=== PATIENT | male | born 1940 | race Caucasian/White ===

== ENCOUNTER → 2017-02-17 | Outpatient (CLI) | payer OTHER ==
[~2017-02-17] VITALS: Ht 182.9 cm; Wt 78.9 kg
[~2017-02-17] MED LIST: INDERAL 20 MG T20 M1 PO; INDERAL LA80 MG PO; LACTULOSE10 GM/152 PO; LASIX 40 MG TAB40 M1 PO; MULTIVITAMINS PO; PRILOSEC 20 MG20 MG PO; SPIRONOLACTONE25 M1 PO
--- NOTE | ~2017-02-17 | P ---
[facility] [place] [address] PROCEDURE REPORT Name: LIZZY ARORA Room #: REG [facility]#: [id number] Admission: 02/17/17 Attend Phys: Kris Aaron MD Discharge: Date of : 38 Report #: [id number] THIS REPORT FOR: //name// CC: Kris Powell MD OUTPATIENT UPPER ENDOSCOPY BRIEF HISTORY: The patient is a 77-year-old male well known to me with a history of portal hypertension related to an injury in the 1970s. 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 PREOPERATIVE DIAGNOSIS: Portal hypertension. POSTOPERATIVE DIAGNOSES: 1. Esophageal varices. 2. Portal hypertensive gastropathy. MEDICATIONS: Deep sedation with propofol per anesthesia. SPECIMEN: None. ESTIMATED BLOOD LOSS: None. PROCEDURE: EGD with banding of esophageal varices. FINDINGS: Prior to propofol sedation, the procedure of upper endoscopy and banding was discussed with the patient as well as potential risks and its complications. He indicates he understands and desires to proceed. DESCRIPTION OF PROCEDURE: With the patient in left lateral decubitus position, the Fuji video endoscope was inserted in the cervical esophagus under direct vision without difficulty. Examination of this organ through its entire length revealed normal esophageal mucosa in the proximal esophagus distally as we advanced the scope, he was noted to have several columns of varices. For the most part, the columns were 1+. However, there was 1 column that was about 2+ in particular it was most prominent in the distal esophagus just distal to the scared area from previous banding. There was no evidence of bleeding. Stigmata bleeding was not identified. The scope was advanced in the stomach, was examined on end view as well as retroflexed views. He has a pattern of diffuse erythema and some thickening in the mucosa consistent with portal hypertensive gastropathy. Gastric varices were not seen. There was no evidence of bleeding. Stigmata bleeding was not seen within the stomach. The pylorus, duodenal bulb and duodenal sweep were inspected and noted to be unremarkable. At that point, the scope was slowly withdrawn and careful circumferential views were obtained. [facility] [address] [place] [address] PROCEDURE REPORT Name: MAITELIZZY Kush Room #: REG [facility].#: [id number] Admission: 02/17/17 Attend Phys: Kris Aaron MD Discharge: Date of : 38 Report #: [id number] Subsequently, after the scope was withdrawn, it was fitted with the banding device. The scope was reintroduced and the 2+ varix was suctioned up into the banding chamber and a band was placed over it. We have achieved good results. There was no evidence of bleeding. At that point, the scope was slowly withdrawn and careful circumferential views confirmed the above findings. The patient tolerated the procedure well. CONDITION OF THE PATIENT UPON DISCHARGE: Following procedure, the patient drowsy, aroused, conversant and will be discharged home when fully ambulatory. INSTRUCTIONS TO THE PATIENT AND FAMILY AT THE TIME OF DISCHARGE: The patient banded as described. He is noted to have portal hypertensive gastropathy, but no evidence of gastric varices. We will have him return in 1 year for a surveillance exam. We will also obtain labs for followup. We will also have him obtain an ultrasound to screen for neoplastic lesions. <ELECTRONICALLY SIGNED> By: Kris Aaron MD 02/18/17 2049 [id number] Kris Aaron MD /nt
== END | disposition home or self-care (01) ==
LOC: GI 08:26
DX: K76.6 Portal hypertension (principal); I85.10 Secondary esophageal varices without bleeding; Z87.891 Personal history of nicotine dependence; Z98.890 Other specified postprocedural states
CPT/HCPCS: 62110; 62900

== ENCOUNTER → 2017-02-25 | Outpatient (CLI) | payer OTHER | LOC: ULTRA 08:13 → EDSTATUS 12:02 → ULTRA 14:20 | DX: K76.89 Other specified diseases of liver (principal); K76.6 Portal hypertension ==

== ENCOUNTER 2017-11-06 14:20 | Emergency (ER) | payer OTHER ==
[~2017-11-06] VITALS: Ht 182.9 cm; Wt 75.8 kg
[2017-11-06] MEDS ORDERED: ERYTHROMYCIN E3.5 G3 OPHTHALMIC (15:05)
== END 2017-11-06 16:54 | disposition home or self-care (01) ==
LOC: ER 14:20
DX: T15.12XA Foreign body in conjunctival sac, left eye, initial encounter (principal); S00.212A Abrasion of left eyelid and periocular area, initial encounter; Z86.718 Personal history of other venous thrombosis and embolism; Z90.49 Acquired absence of other specified parts of digestive tract; Z95.0 Presence of cardiac pacemaker; X58.XXXA Exposure to other specified factors, initial encounter; Y93.89 Activity, other specified; Y92.89 Other specified places as the place of occurrence of the external cause; Y99.8 Other external cause status

== ENCOUNTER → 2018-08-31 | Outpatient (CLI) | payer OTHER ==
[~2018-08-31] VITALS: Ht 182.9 cm; Wt 72.6 kg
[~2018-08-31] MED LIST changes: +CONSTULOSE10 GM/152 PO; +ERYTHROMYCIN E3.5 G3 OPHTHALMIC
--- NOTE | ~2018-08-31 | P ---
[facility] [place] [address] PROCEDURE REPORT Name: LIZZY ARORA Room #: REG [facility]#: [id number] Admission: 08/31/18 ������������������ Attend Phys: Kris Aaron MD Discharge: ������������������ Date of : 38 Report #: [id number] THIS REPORT FOR: //name// CC: Kris Powell MD OUTPATIENT UPPER ENDOSCOPY REPORT BRIEF HISTORY: The patient is a 78-year-old male with a history of portal vein thrombosis and portal hypertension and esophageal varices with previous banding for surveillance for esophageal varices. PREOPERATIVE DIAGNOSIS: Esophageal varices. POSTOPERATIVE DIAGNOSES: 1. Subtle esophageal varices. 2. Scarring of distal esophagus, consistent with esophageal variceal banding. 3. Moderate diffuse gastritis. MEDICATIONS: Deep sedation with propofol per Anesthesia. SPECIMEN: None. ESTIMATED BLOOD LOSS: None. PROCEDURE: EGD. FINDINGS: Prior to propofol sedation, the procedure of upper endoscopy and banding was reviewed with the patient as well as potential risks and its complications. He indicates he understands and desires to proceed. DESCRIPTION OF PROCEDURE: With the patient in the left lateral decubitus position, the Olympus video endoscope was inserted in the cervical esophagus under direct vision without difficulty. Examination of this organ through its entire length revealed normal esophageal mucosa. The scope was advanced into the middle third of the esophagus, a single faint column esophageal varix was seen. There was no stigmata of bleeding or evidence of bleeding. It was felt that this varix was too small to warrant banding at this point. The scope was advanced distally into the distal esophagus. About 5 cm above the squamocolumnar junction, there were multiple scars, consistent with previous banding. They were all well healed. There was no evidence of significant esophageal varices at this point. There were no ulcers, erosions or evidence of bleeding lesions. The squamocolumnar junction was inspected. No varices were seen at the squamocolumnar junction. The scope was advanced in the stomach, which was examined on end views as well as retroflexed views. There was a pattern of diffuse gastritis. No ulcers or erosions were seen. Upon [facility] [address] [place] [address] PROCEDURE REPORT Name: LIZZY ARORA Room #: REG [facility].#: [id number] Admission: 08/31/18 ������������������ Attend Phys: Kris Aaron MD Discharge: ������������������ Date of : 38 Report #: [id number] retroflexion, no mass lesions were seen. I also might point out no gastric varices were seen. The pylorus, duodenal bulb and postbulbar sweep were inspected and noted to be unremarkable. At that point, the scope was slowly withdrawn and careful circumferential views confirmed the above findings. The patient tolerated the procedure well. CONDITION OF THE PATIENT UPON DISCHARGE: Following the procedure, the patient drowsy. He will be discharged home when fully ambulatory. INSTRUCTIONS TO THE PATIENT AND FAMILY AT THE TIME OF DISCHARGE: The patient with known portal vein thrombosis, likely from trauma many years ago. He has a history of portal hypertension and previous banding of esophageal varices. Very small varices seen today, but banding felt not to be indicated as they are quite small. We will have him return in 1 year for followup endoscopy and potential banding. 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 He will return under the care of Dr. Powell and return to see me as needed. ��������������������������������������������� ���������������������������������������� By: ��������������������������������������������� [id number] Kris Aaron MD /nt
== END | disposition home or self-care (01) ==
LOC: GI 06:16
DX: K29.70 Gastritis, unspecified, without bleeding (principal); K22.8 Other specified diseases of esophagus; I85.10 Secondary esophageal varices without bleeding; K74.60 Unspecified cirrhosis of liver; Z90.49 Acquired absence of other specified parts of digestive tract; Z87.19 Personal history of other diseases of the digestive system; Z87.891 Personal history of nicotine dependence; Z95.0 Presence of cardiac pacemaker; Z98.42 Cataract extraction status, left eye; Z98.41 Cataract extraction status, right eye; Z98.890 Other specified postprocedural states; Z79.899 Other long term (current) drug therapy; Z86.718 Personal history of other venous thrombosis and embolism; Z79.01 Long term (current) use of anticoagulants; Z88.8 Allergy status to other drugs, medicaments and biological substances
CPT/HCPCS: 62110; 62900